=== PATIENT | female | born 1960 | race Caucasian/White ===

== ENCOUNTER 2016-07-07 09:05 | Emergency (ER) | payer OTHER ==
[2016-07-07 09:37] LABS: EOSINOPHIL (%) 1.4 % (0-5); EOSINOPHIL COUNT 0.1 K/uL (0-0.3); HEMATOCRIT 42.8 % (36.0-46.0); IMMATURE GRANULOCYTE (%) 0.1 % (0.0-0.7); INSTRUMENT ABS NEUTROPHIL CT 4.8 K/uL; LYMPHOCYTE COUNT 1.6 K/uL (1.0-2.8); MCH 31.6 PG (29.0-34.0); MCHC 32.9 G/DL (30.0-36.0); MEAN PLAT.VOLUME 10.2 uM^3 (9.5-12.4); MONOCYTE COUNT 0.7 K/uL (0-0.8); NEUTROPHIL (%) 66.8 % (45-76); NEUTROPHIL COUNT 4.8 K/uL (1.8-6.4); PLATELET COUNT 262 K/uL (156-360); RBC DIS.WIDTH-SD 43.3 % (39-53); RED BLOOD COUNT 4.46 M/uL (3.80-5.20); WHITE BLOOD COUNT 7.2 K/uL (4.1-10.2)
[2016-07-07 09:38] LABS: AMYLASE 46 IU/L (1-118); CHLORIDE 102 mEq/L (99-109); POTASSIUM 3.9 mEq/L (3.7-5.4); SODIUM 141 mEq/L (136-147)
[2016-07-07 09:39] LABS: GLUCOSE 108 mg/dL (70-99)
[2016-07-07 09:41] LABS: ANION GAP 15 MEQ/L (2-14)
[2016-07-07 09:43] LABS: GFR ESTIMATE (CALCULATED) > 59 mL/min/; SERUM ETHYL ALCOHOL < 10 mg/dL
[2016-07-07 09:44] LABS: UREA NITROGEN (BUN) 12 mg/dL (9-23)
[2016-07-07 09:46] LABS: LIPASE 19 U/L (1.0-51.0)
[2016-07-07 09:54] LABS: QUANTITATIVE HCG < 4.0 MIU/ML
[2016-07-07] MEDS ORDERED: PANTOPRAZOLE SO40 MG PO (10:07)
[2016-07-07] MEDS ORDERED: SIMVASTATIN10 MG PO (10:07)
[2016-07-07] MEDS ORDERED: MONTELUKAST SOD10 MG PO (10:07)
[2016-07-07] MEDS ORDERED: VITAMIN D31000 UNI2 PO (10:08)
[2016-07-07] MEDS ORDERED: PERCOCET 5/31 TABLET PO (10:40)
== END 2016-07-07 12:36 | disposition home or self-care (01) ==
LOC: TRA 09:05
PROVIDERS: Emergency Medicine
DX: S20.219A Contusion of unspecified front wall of thorax, initial encounter (principal); S13.9XXA Sprain of joints and ligaments of unspecified parts of neck, initial encounter; S80.02XA Contusion of left knee, initial encounter; V89.2XXA Person injured in unspecified motor-vehicle accident, traffic, initial encounter
CPT/HCPCS: 70450; 71010; 71260; 72125; 72129; 72132; 73560; 74177; 80048; 81003; 82150; 83690; 84702; 85025; 86900; 86901; 99281; 99285; G0480; J2270